=== PATIENT | male | born 1950 | race Native Hawaiian/Other Pacific Islander ===

== ENCOUNTER 2017-03-23 08:11 | Day surgery (SDC) | payer OTHER ==
[2017-03-23 08:51] LABS: PLATELET COUNT 146 K/uL (142-355)
[2017-03-23 09:10] LABS: POTASSIUM 3.6 mmol/L (3.6-5.2)
== END 2017-03-23 12:15 | disposition home or self-care (01) ==
LOC: OR 08:11
PROVIDERS: Student in an Organized Health Care Education/Training Program
PROC: 0DJD8ZZ Inspection of Lower Intestinal Tract, Via Natural or Artificial Opening Endoscopic (ICD-10-PCS; principal; 2017-03-23)
DX: K57.30 Diverticulosis of large intestine without perforation or abscess without bleeding (principal); Z12.11 Encounter for screening for malignant neoplasm of colon; Z86.010 Personal history of colon polyps; C61 Malignant neoplasm of prostate
CPT/HCPCS: 80053; 85027; J2001; J2250; J2704; J3010